=== PATIENT | female | born 1970 | race Caucasian/White ===

== ENCOUNTER 2021-11-02 07:20 | Emergency (ER) | payer BC ==
[2021-11-02 08:08] LABS: Urine Bacteria <20 /HPF (<20); Urine RBC >50 /HPF (None Seen)
[2021-11-02 08:25] LABS: Absolute Lymphocytes (CBC) 1.3 K/uL (0.7-4.9); Hematocrit 37.7 % (36.0-45.0); Lymphocytes % 14.5 % (15.3-44.8); MCV 92.8 fL (80-100); MPV 7.7 fL (7.6-11.3); RBC Red Blood Cell Count 4.06 M/uL (3.86-4.86)
[2021-11-02 08:34] LABS: Albumin 3.8 g/dL (3.4-5.0); Bilirubin Total 0.3 mg/dL (0.2-1.0); Potassium 3.8 mmol/L (3.5-5.1); Protein, Total 7.2 g/dL (6.4-8.2)
--- NOTE | 2021-11-02 08:34 | RAD REPORT ---
EXAM DESCRIPTION: CT - Stone Protocol - 11/02/2021 8:24 am CLINICAL HISTORY: Flank pain. hematuria COMPARISON: No comparisons TECHNIQUE: Axial images were obtained without oral or IV contrast. Lack of contrast limits solid org an and vascular assessment. The [id number] spans the entirety of the system partially obscuring uppermost abdomen and lung bases. Coronal reformatted images were obtained and reviewed. All CT scans are performed using dose optimization technique as appropriate and may include automated exposure control or mA/KV adjustment according to patient size. FINDINGS: The lower lung weber are clear. Imaged portions of the liver and spleen show no suspicious findings on non-contrast imaging. The panc reas and adrenal glands are normal. No pathologic lymphadenopathy in the abdomen or pelvis. No urinary tract stones or obstructive uropathy. No bowel obstruction, free air, free fluid or abscess. Appendectomy. No significant bony abnormality. IMPRESSION: No urinary tract stones or obstructive uropathy.
[2021-11-02] MEDS ORDERED: KETOROLAC 30 MG/ML INJ ONE (08:35)
[2021-11-02] MEDS ORDERED: CEFTRIAXONE 1000 MG/VIAL ONE (08:35)
[2021-11-02] MEDS ORDERED: ONDANSETRON 4 MG/2 ML VIAL ONE (08:35)
[2021-11-02] MEDS ORDERED: NA CHLORIDE 0.9% 1,000 ML ONE (08:35)
--- NOTE | 2021-11-02 10:14 | ER ---
Nurse's Notes [facility] [place] Name: Carmen Lau Age: 51 yrs Sex: Female : 1970 Arrival Date: 11/02/2021 Time: 07:23 Bed 9 Private MD: Diagnosis: Gross hematuria;Hematuria, unspecified Presentation: 11/02 07:31 Chief complaint: Spouse and/or significant other states: past month has been peeing blood and this morning there was blood clots, pt denies pain with urination, +urinary frequency. Coronavirus screen: At this time, the client does not indicate any symptoms associated with coronavirus-19. Ebola Screen: Patient negative for fever greater than or equal to 101.5 degrees Fahrenheit, and additional compatible Ebola Virus Disease symptoms Patient denies exposure to infectious person. Patient denies travel to an Ebola-affected area in the 21 days before illness onset. No symptoms or risks identified at this time. Initial Sepsis Screen: Does the patient meet any 2 criteria? No. Patient's initial sepsis screen is negative. Does the patient have a suspected source of infection? No. Patient's initial sepsis screen is negative. Risk Assessment: Do you want to hurt yourself or someone else? Patient reports no desire to harm self or others. Onset of symptoms was September 2021. 07:31 Method Of Arrival: Ambulatory 07:31 Acuity: MARIA L 3 iw Historical: - Allergies: 07:33 Codeine; iw - Home Meds: 07:33 Suboxone 2-0.5 mg sublingual subl [Active]; iw - PMHx: 07:33 None; iw - PSHx: 07:33 breast reduction; hysterectomy; iw - Immunization history:: Client reports receiving the 2nd dose of the Covid vaccine. - Social history:: Smoking status: Patient reports the use of cigarette tobacco products. - Family history:: not pertinent. Screenin:40 Abuse screen: Denies threats or abuse. Nutritional screening: No deficits noted. bm7 Tuberculosis screening: No symptoms or risk factors identified. Fall Risk None identified. Assessment: 09:40 Reassessment: Patient and/or family updated on plan of care and expected duration. Pain bm7 level reassessed. Patient is alert, oriented x 3, equal unlabored respirations, skin warm/dry/pink. Patient states feeling better. General: Appears in no apparent distress. comfortable, Behavior is calm, cooperative, appropriate for age. Pain: Denies pain. Neuro: No deficits noted. Cardiovascular: No deficits noted. Respiratory: No deficits noted. GI: Abdomen is round Bowel sounds present X 4 quads. Reports. : Reports blood in urine. EENT: No deficits noted. No signs and/or symptoms were reported regarding the EENT system. Derm: No deficits noted. No signs and/or symptoms reported regarding the dermatologic system. Musculoskeletal: No deficits noted. No signs and/or symptoms reported regarding the musculoskeletal system. Vital Signs: 07:31 BP 147 / 101; Pulse 75; Resp 16; Temp 97.5; Pulse Ox 100% on R/A; Weight 54.43 kg; iw Height 5 ft. 6 in. (167.64 cm); 08:39 BP 143 / 88; Pulse 66; Resp 16; Pulse Ox 99% on R/A; Pain 2/10; bm7 09:40 BP 133 / 77; Pulse 68; Resp 16; Pulse Ox 100% on R/A; Pain 0/10; bm7 07:31 Body Mass Index 19.37 (54.43 kg, 167.64 cm) iw ED Course: 07:23 Patient arrived in ED. am2 07:33 Triage completed. iw 07:34 Arm band placed on. iw 07:35 Juan Hicks MD is Attending Physician. chad 08:09 Inserted saline lock: 20 gauge in right antecubital area, using aseptic technique. kc6 Blood collected. 08:09 Comprehensive Metabolic Panel Sent. kc6 08:09 CBC with Diff Sent. kc6 08:17 Christi Purdy, RN is Primary Nurse. bm7 08:26 CT Stone Protocol In Process Unspecified. EDMS 08:38 No apparent distress. Resting quietly. Awaiting lab results. bm7 08:38 Patient has correct armband on for positive identification. Bed in low position. Call bm7 light in reach. Client placed on continuous cardiac and pulse oximetry monitoring. NIBP monitoring applied. Warm blanket given. Assisted to bathroom. 08:38 No provider procedures requiring assistance completed. Initial lab(s) drawn, by ED bm7 staff, sent to lab. Patient maintains SpO2 saturation greater than 95% on room air. 08:[address] bm7 10:12 Zev Miranda MD is Referral Physician. [facility] 10:26 IV discontinued, intact, bleeding controlled, No redness/swelling at site. Pressure bm7 dressing applied. Administered Medications: 08:38 Drug: Rocephin (cefTRIAXone) 1 grams Route: IV; Rate: per protocol; Site: right bm7 antecubital; 08:39 Drug: NS 0.9% 1000 ml Route: IV; Rate: 1 bolus; Site: right antecubital; bm7 09:29 Follow up: IV Status: Completed infusion; IV Intake: 1000ml bm7 08:39 Drug: Ketorolac 30 mg Route: IVP; Site: right antecubital; bm7 09:29 Follow up: Response: Pain is decreased bm7 08:39 Drug: Zofran (Ondansetron) 4 mg Route: IVP; Site: right antecubital; bm7 09:29 Follow up: Response: Nausea is decreased bm7 10:22 Drug: Cipro (ciprofloxacin) 500 mg Route: PO; bm7 10:26 Follow up: Response: No adverse reaction bm7 10:22 Drug: Pyridium (phenazopyridine) 200 mg Route: PO; bm7 10:26 Follow up: Response: No adverse reaction bm7 Medication: 09:40 VIS not applicable for this client. bm7 Intake: 09:29 IV: 1000ml; Total: 1000ml. bm7 Outcome: 10:13 Discharge ordered by . [facility] 10:26 Discharged to home ambulatory. bm7 10:26 Condition: good 10:26 Discharge instructions given to patient, Instructed on discharge instructions, follow up and referral plans. medication usage, Demonstrated understanding of instructions, follow-up care, medications, Prescriptions given X 2. 10:27 Patient left the ED. bm7 Signatures: Dispatcher [employer] EDJuan Vela MD MD cha Williams, Irene, RN RN Ines Perera am2 Christi Purdy RN RN 7 Sumi Benavides kc6
--- NOTE | 2021-11-02 10:14 | EDPHYS ---
Physician Documentation [facility] [place] Name: Carmen Judi Age: 51 yrs Sex: Female : 1970 Arrival Date: 11/02/2021 Time: 07:23 Bed 9 Private MD: DENNIS Physician Juan Hicks HPI: 11/02 10:07 This 51 yrs old Female presents to ER via Ambulatory with complaints of chad Urinary Problem - blood. 10:07 The patient presents with urinary symptoms, frequency. Onset: The symptoms/episode chad began/occurred 7 day(s) ago. Modifying factors: The symptoms are alleviated by nothing, the symptoms are aggravated by nothing. Associated signs and symptoms: The patient has no apparent associated signs or symptoms. Severity of symptoms: At their worst the symptoms were mild, in the emergency department the symptoms are unchanged. The patient is sexually active, reportedly has a single partner. The patient has not experienced similar symptoms in the past. Historical: - Allergies: 07:33 Codeine; iw - Home Meds: 07:33 Suboxone 2-0.5 mg sublingual subl [Active]; iw - PMHx: 07:33 None; iw - PSHx: 07:33 breast reduction; hysterectomy; iw - Immunization history:: Client reports receiving the 2nd dose of the Covid vaccine. - Social history:: Smoking status: Patient reports the use of cigarette tobacco products. - Family history:: not pertinent. ROS: 10:07 Constitutional: Negative for fever, chills, and weight loss, Eyes: Negative for injury, chad pain, redness, and discharge, ENT: Negative for injury, pain, and discharge, Neck: Negative for injury, pain, and swelling, Cardiovascular: Negative for chest pain, palpitations, and edema, Respiratory: Negative for shortness of breath, cough, wheezing, and pleuritic chest pain, Abdomen/GI: Negative for abdominal pain, nausea, vomiting, diarrhea, and constipation, Back: Negative for injury and pain, MS/Extremity: Negative for injury and deformity, Skin: Negative for injury, rash, and discoloration, Neuro: Negative for headache, weakness, numbness, tingling, and seizure, Psych: Negative for depression, anxiety, suicide ideation, homicidal ideation, and hallucinations, Allergy/Immunology: Negative for hives, rash, and allergies, Endocrine: Negative for neck swelling, polydipsia, polyuria, polyphagia, and marked weight changes, Hematologic/Lymphatic: Negative for swollen nodes, abnormal bleeding, and unusual bruising. 10:07 : Positive for hematuria. Exam: 10:07 Constitutional: This is a well developed, well nourished patient who is awake, alert, chad and in no acute distress. Head/Face: Normocephalic, atraumatic. Eyes: Pupils equal round and reactive to light, extra-ocular motions intact. Lids and lashes normal. Conjunctiva and sclera are non-icteric and not injected. Cornea within normal limits. Periorbital areas with no swelling, redness, or edema. ENT: Nares patent. No nasal discharge, no septal abnormalities noted. Tympanic membranes are normal and external auditory canals are clear. Oropharynx with no redness, swelling, or masses, exudates, or evidence of obstruction, uvula midline. Mucous membranes moist. Neck: Trachea midline, no thyromegaly or masses palpated, and no cervical lymphadenopathy. Supple, full range of motion without nuchal rigidity, or vertebral point tenderness. No Meningismus. Chest/axilla: Normal chest wall appearance and motion. Nontender with no deformity. No lesions are appreciated. Cardiovascular: Regular rate and rhythm with a normal S1 and S2. No gallops, murmurs, or rubs. Normal PMI, no JVD. No pulse deficits. Respiratory: Lungs have equal breath sounds bilaterally, clear to auscultation and percussion. No rales, rhonchi or wheezes noted. No increased work of breathing, no retractions or nasal flaring. Back: No spinal tenderness. No costovertebral tenderness. Full range of motion. Skin: Warm, dry with normal turgor. Normal color with no rashes, no lesions, and no evidence of cellulitis. MS/ Extremity: Pulses equal, no cyanosis. Neurovascular intact. Full, normal range of motion. Neuro: Awake and alert, GCS 15, oriented to person, place, time, and situation. Cranial nerves II-XII grossly intact. Motor strength 5/5 in all extremities. Sensory grossly intact. Cerebellar exam normal. Normal gait. Psych: Awake, alert, with orientation to person, place and time. Behavior, mood, and affect are within normal limits. 10:07 Abdomen/GI: Inspection: abdomen appears normal, Bowel sounds: normal, Palpation: mild abdominal tenderness, in the suprapubic area, Liver: no appreciated palpable abnormalities, Hernia: not appreciated. Vital Signs: 07:31 BP 147 / 101; Pulse 75; Resp 16; Temp 97.5; Pulse Ox 100% on R/A; Weight 54.43 kg; iw Height 5 ft. 6 in. (167.64 cm); 08:39 BP 143 / 88; Pulse 66; Resp 16; Pulse Ox 99% on R/A; Pain 2/10; bm7 09:40 BP 133 / 77; Pulse 68; Resp 16; Pulse Ox 100% on R/A; Pain 0/10; bm7 07:31 Body Mass Index 19.37 (54.43 kg, 167.64 cm) iw MDM: 07:35 Patient medically screened. [facility] 10:11 Differential diagnosis: malignancy, urinary tract infection. Data reviewed: vital chad signs, nurses notes, lab test result(s), radiologic studies, CT scan. Data interpreted: mannequin maker: not applicable for this patient encounter. rate is 68 beats/min, rhythm is regular, Pulse oximetry: on room air is 100 %. Test interpretation: by ED physician or midlevel provider:. Counseling: I had a detailed discussion with the patient and/or guardian regarding: the historical points, exam findings, and any diagnostic results supporting the discharge/admit diagnosis, lab results, radiology results, the need for outpatient follow up, for definitive care, a family practitioner, a urologist. 11/02 07:37 Order name: CBC with Diff; Complete Time: 10:00 chad 11/02 07:37 Order name: Comprehensive Metabolic Panel; Complete Time: 10:00 [facility] 11/02 07:37 Order name: Urine Culture [facility] 11/02 07:37 Order name: CT Stone Protocol; Complete Time: 10:00 chad 11/02 07:46 Order name: Urine Microscopic Only; Complete Time: 10:00 iw 11/02 07:37 Order name: Urine Dipstick-Ancillary (obtain specimen); Complete Time: 07:46 [facility] Administered Medications: 08:38 Drug: Rocephin (cefTRIAXone) 1 grams Route: IV; Rate: per protocol; Site: right bm7 antecubital; 08:39 Drug: NS 0.9% 1000 ml Route: IV; Rate: 1 bolus; Site: right antecubital; bm7 09:29 Follow up: IV Status: Completed infusion; IV Intake: 1000ml bm7 08:39 Drug: Ketorolac 30 mg Route: IVP; Site: right antecubital; bm7 09:29 Follow up: Response: Pain is decreased bm7 08:39 Drug: Zofran (Ondansetron) 4 mg Route: IVP; Site: right antecubital; bm7 09:29 Follow up: Response: Nausea is decreased bm7 10:22 Drug: Cipro (ciprofloxacin) 500 mg Route: PO; bm7 10:26 Follow up: Response: No adverse reaction bm7 10:22 Drug: Pyridium (phenazopyridine) 200 mg Route: PO; bm7 10:26 Follow up: Response: No adverse reaction bm7 Disposition Summary: 11/02/21 10:13 Discharge Ordered Location: Home chad Problem: new chad Symptoms: have improved chad Condition: Stable chad Diagnosis - Gross hematuria chad - Hematuria, unspecified chad Followup: chad - With: Private Physician - When: 2 - 3 days - Reason: Recheck today's complaints, Continuance of care, Re-evaluation by your physician Followup: chad - With: Zev Miranda MD - When: 2 - 3 days - Reason: Recheck today's complaints, Re-evaluation by your physician Discharge Instructions: - Discharge Summary Sheet chad - Dysuria chad - Hematuria, Adult chad Forms: - Medication Reconciliation Form chad - Thank You Letter chad - Antibiotic Education chad - Prescription Opioid Use chad - Work release form bm7 Prescriptions: - Cipro 250 mg Oral Tablet - take 1 tablet by ORAL route every 12 hours; 14 tablet; Refills: 0, Product [facility] Selection Permitted - Pyridium 200 mg Oral Tablet - take 1 tablet by ORAL route every 8 hours for 3 days; 9 tablet; Refills: 0, [facility] Product Selection Permitted Signatures: Dispatcher [employer] EDJuan Vela MD MD cha Williams, Irene, RN RN iw McCarthy, Brittany, RN RN bm7 Corrections: (The following items were deleted from the chart) 07:54 07:43 URINALYSIS+[id number].[email or web address].BRZ ordered. EDNM EDMS
[2021-11-02] MEDS ORDERED: CIPROFLOXACIN HCL 500 MG TAB ONE (10:27)
[2021-11-02] MEDS ORDERED: PHENAZOPYRIDINE 100MG TAB PO ONE (10:27)
[2021-11-02 10:42] VITALS: TEMP 97.5
[2021-11-02 10:47] VITALS: BP 133/77; O2SAT 100
== END 2021-11-02 10:27 | disposition home or self-care (01) ==
LOC: ER 07:20
DX: R31.0 Gross hematuria (principal); R31.9 Hematuria, unspecified; Z72.0 Tobacco use; Z88.5 Allergy status to narcotic agent
CPT/HCPCS: 96361; 87088; 85025; 87086; 36415; 81015; 80053; 76377; 74176; 96375; 96374; 99285; J7030; J2405